=== PATIENT | female | born 1950 | race Caucasian/White ===

== ENCOUNTER → 2017-11-20 | Outpatient (CLI) | payer OTHER, MEDICARE ==
[~2017-11-20] MED LIST: HYDROCODONE-AP1 EAC6 PO; KEFLEX500 MG PO; NOHOMEMEDICATIONS; ZOFRAN ODT4 MG PO
== END ==
LOC: M.RAD 11-19 07:00
DX: Z12.31 Encounter for screening mammogram for malignant neoplasm of breast (principal); K57.92 Diverticulitis of intestine, part unspecified, without perforation or abscess without bleeding; Z88.0 Allergy status to penicillin

== ENCOUNTER 2018-04-29 23:56 | Emergency (ER) | payer OTHER, MEDICARE ==
[~2018-04-29] VITALS: Ht 152.4 cm; Wt 78.0 kg
[2018-04-30] MEDS ORDERED: FLEXERIL PO (02:04)
[2018-04-30 02:20] VITALS: BP 144/78
== END 2018-04-30 02:29 | disposition home or self-care (01) ==
LOC: M.ERS 23:56
DX: S80.01XA Contusion of right knee, initial encounter (principal); M54.6 Pain in thoracic spine; M25.531 Pain in right wrist; R22.31 Localized swelling, mass and lump, right upper limb; Z88.1 Allergy status to other antibiotic agents; Z88.0 Allergy status to penicillin; Z88.2 Allergy status to sulfonamides; Z91.018 Allergy to other foods; Z88.7 Allergy status to serum and vaccine; W01.0XXA Fall on same level from slipping, tripping and stumbling without subsequent striking against object, initial encounter; Y93.89 Activity, other specified; Y92.89 Other specified places as the place of occurrence of the external cause; Y99.8 Other external cause status

== ENCOUNTER → 2018-06-06 | Outpatient (CLI) | payer OTHER, MEDICARE ==
[~2018-06-06] MED LIST changes: +FLEXERIL PO
[2018-06-06 12:54] LABS: ABSOLUTE EOSINOPHILS 0.1 thou/uL (0.0-0.7); ABSOLUTE LYMPHOCYTES 1.2 thou/uL (0.8-5.3); ABSOLUTE MONOCYTES 0.4 thou/uL (0.0-1.2); ABSOLUTE NEUTROPHILS 4.5 thou/uL (1.6-8.1); BASOPHILS 0.5 %; EOSINOPHILS 1.4 %; HEMATOCRIT 40.7 % (37.0-47.0); HEMOGLOBIN 13.4 gm/dL (12.0-15.0); LYMPHOCYTES 19.5 %; MCH 32.7 pg (26.0-34.0); MCV 99.1 fL (80.0-100.0); MONOCYTES 6.1 %; NUCLEATED RBCS 0 /100WBC; PLATELET COUNT* 163 thou/uL (150-400); POLYS 72.5 %; RDW-CV 13.9 % (10.5-14.5); WBC 6.3 thou/uL (4.0-11.0)
[2018-06-06 13:12] LABS: ALBUMIN 3.2 g/dL (3.4-5.0); ALKALINE PHOSPHATASE 90 U/L (46-116); ANION GAP 9 mmol/L (7-16); BUN 14 mg/dL (7-18); CALCIUM 8.9 mg/dL (8.5-10.1); CHLORIDE 108 mmol/L (98-107); CO2 28 mmol/L (21-32); CREATININE 0.8 mg/dL (0.6-1.3); DIRECT BILIRUBIN 0.1 mg/dL (<0.1-0.3); GLUCOSE 92 mg/dL (70-99); POTASSIUM 3.8 mmol/L (3.5-5.1); SERUM ASSESSMENT Clear; SGOT 27 U/L (15-37); SGPT 29 U/L (30-65); SODIUM 145 mmol/L (136-145); TOTAL BILIRUBIN 0.4 mg/dL (<0.1-1.0)
[2018-06-06 13:23] LABS: CHOLESTEROL 165 mg/dL (<200); HDL CHOLESTEROL 61 mg/dL (>40); LDL CHOLESTEROL 97 mg/dL (<100); TC:HDL 2.7 Ratio (Not establshd); TRIGLYCERIDE 38 mg/dL (<150); VLDL 8 mg/dL (<40)
[2018-06-06 22:06] LABS: GLYCOHEMOGLOBIN (HGB A1C) 5.2 % (4.8-5.6)
== END ==
LOC: M.CT 12:00
PROVIDERS: Registered Nurse Diabetes Educator
DX: Z13.1 Encounter for screening for diabetes mellitus (principal); Z13.220 Encounter for screening for lipoid disorders; K57.30 Diverticulosis of large intestine without perforation or abscess without bleeding; I86.2 Pelvic varices; J98.4 Other disorders of lung; E66.9 Obesity, unspecified; I47.1 Supraventricular tachycardia; M47.816 Spondylosis without myelopathy or radiculopathy, lumbar region; Z88.7 Allergy status to serum and vaccine; Z88.2 Allergy status to sulfonamides; Z88.1 Allergy status to other antibiotic agents; Z88.0 Allergy status to penicillin; Z88.8 Allergy status to other drugs, medicaments and biological substances; Z79.899 Other long term (current) drug therapy; Z68.30 Body mass index [BMI] 30.0-30.9, adult

== ENCOUNTER → 2018-06-19 | Outpatient (CLI) | payer OTHER, MEDICARE | LOC: M.RAD 06:06 | DX: M85.851 Other specified disorders of bone density and structure, right thigh (principal); M85.852 Other specified disorders of bone density and structure, left thigh; Z78.0 Asymptomatic menopausal state; Z88.2 Allergy status to sulfonamides; Z88.8 Allergy status to other drugs, medicaments and biological substances; Z88.1 Allergy status to other antibiotic agents; Z88.0 Allergy status to penicillin; Z88.7 Allergy status to serum and vaccine ==

== ENCOUNTER → 2018-12-02 | Outpatient (CLI) | payer OTHER | LOC: M.RAD 11-21 16:00 | DX: Z12.31 Encounter for screening mammogram for malignant neoplasm of breast (principal) ==

== ENCOUNTER → 2019-12-04 | Outpatient (CLI) | payer MEDICARE | LOC: M.RAD 07:30 | PROVIDERS: ATTEND Registered Nurse Diabetes Educator | DX: Z12.31 Encounter for screening mammogram for malignant neoplasm of breast (principal); N64.89 Other specified disorders of breast ==

== ENCOUNTER → 2020-12-01 | Outpatient (CLI) | payer MEDICARE | LOC: M.RAD 07:39 | PROVIDERS: ATTEND Registered Nurse Diabetes Educator | DX: Z12.31 Encounter for screening mammogram for malignant neoplasm of breast (principal) ==